=== PATIENT | male | born 1950 | race Caucasian/White ===

== ENCOUNTER 2017-07-20 12:48 | Observation (INO) | payer OTHER, MEDICARE ==
[2017-07-20 13:35] VITALS: BP 161/84; PULSE 74; RESP 16; TEMP 98.4; O2SAT 96
[2017-07-20 14:19] LABS: AUTOMATED NEUTROPHIL # 7.3 TH/MM3 (1.8-7.7); BASOPHIL # 0.1 TH/MM3 (0-0.2); BASOPHIL % 0.5 % (0.0-2.0); EOSINOPHIL # 0.1 TH/MM3 (0-0.4); EOSINOPHIL % 1.1 % (0.0-4.0); HEMATOCRIT 46.2 % (39.0-51.0); HEMOGLOBIN 15.5 GM/DL (13.0-17.0); LYMPH % 28.2 % (9.0-44.0); LYMPHOCYTE # 3.2 TH/MM3 (1.0-4.8); MEAN CORPUSCULAR HEMOGLOBIN 27.8 PG (27.0-34.0); MEAN CORPUSCULAR HGB CONC 33.5 % (32.0-36.0); MEAN PLATELET VOLUME 7.3 FL (7.0-11.0); MONO % 5.4 % (0.0-8.0); MONOCYTE # 0.6 TH/MM3 (0-0.9); NEUT % 64.8 % (16.0-70.0); PLATELET COUNT 240 TH/MM3 (150-450); RED BLOOD COUNT 5.57 MIL/MM3 (4.50-5.90); RED CELL DISTRIBUTION WIDTH 13.5 % (11.6-17.2); WHITE BLOOD COUNT 11.3 TH/MM3 (4.0-11.0)
[2017-07-20 14:31] LABS: PROTHROMBIN TIME - PATIENT 10.4 SEC (9.8-11.6)
--- NOTE | 2017-07-20 14:38 | RADRPT ---
EXAM DATE/TIME: 07/20/2017 13:55 [place] COMPARISON: No previous studies available for comparison. INDICATIONS : Chest pain. MEDICAL HISTORY : Hypertension. Diabetes mellitus type II. Asthma. SURGICAL HISTORY : None. ENCOUNTER: Initial ACUITY: 2 days PAIN SCORE: 8/10 LOCATION: Bilateral chest FINDINGS: PA and lateral views of the chest demonstrate the lungs to be symmetrically aerated without evidence of mass, infiltrate or effusion. The cardiomediastinal contours are unremarkable. Osseous structure s are intact. CONCLUSION: 1. No acute cardiopulmonary findings. Shade Ballesteros MD on July 20, 2017 at 14:35 Board Certified Radiologist. This report was verified electronically.
[2017-07-20 14:40] LABS: BICARBONATE 27.1 MEQ/L (21.0-32.0); BLOOD UREA NITROGEN 20 MG/DL (7-18); CALCIUM 8.7 MG/DL (8.5-10.1); CHLORIDE 103 MEQ/L (98-107); CREATININE 0.98 MG/DL (0.60-1.30); GLOMERULAR FILTRATION RATE 76 ML/MIN (>89); GLUCOSE,RANDOM 136 MG/DL (74-106); MAGNESIUM 1.9 MG/DL (1.5-2.5); SODIUM (NA) 138 MEQ/L (136-145)
[2017-07-20 14:45] LABS: TROPONIN I LESS THAN 0.02 NG/ML (0.02-0.05)
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
[2017-07-20 15:36] VITALS: BP 165/79; PULSE 68; RESP 20; O2SAT 96
[2017-07-20] MEDS ORDERED: FLUT50SP EACH NARE (15:50)
[2017-07-20] MEDS ORDERED: ASPI-516 CHEW (15:50)
[2017-07-20] MEDS ORDERED: SYMB160A INH (15:50)
[2017-07-20] MEDS ORDERED: AZEL137S EACH NARE (15:50)
[2017-07-20] MEDS ORDERED: ATEN25TA PO (15:50)
[2017-07-20] MEDS ORDERED: IPRAAER INH (15:50)
[2017-07-20] MEDS ORDERED: OMEP20TA93 PO (15:50)
[2017-07-20] MEDS ORDERED: GABA300C5 PO (15:50)
[2017-07-20] MEDS ORDERED: ATOR10TA15 PO (15:50)
[2017-07-20] MEDS ORDERED: CETI10 PO (15:50)
[2017-07-20] MEDS ORDERED: METF500T PO (15:50)
[2017-07-20] MEDS ORDERED: VIAG50TA PO (15:50)
[2017-07-20] MEDS ORDERED: MELO7.5T27 PO (15:50)
[2017-07-20] MEDS ORDERED: LISI-519 PO (15:50)
[2017-07-20] MEDS ORDERED: ACETAMINOPHEN 500 MG CPLT PO PRN (16:00)
[2017-07-20] MEDS ORDERED: DEXTROSE 50% IN WATER 50 ML VIAL(D50) IV PUSH PRN (16:00)
[2017-07-20] MEDS ORDERED: ONDANSETRON HCL 4 MG/2 ML VIAL IV PUSH PRN (16:00)
[2017-07-20] MEDS ORDERED: GLUCAGON 1 MG/ML VIAL OTHER PRN (16:00)
[2017-07-20] MEDS ORDERED: ALPRAZolam 0.25 MG TAB PO PRN (16:00)
[2017-07-20] MEDS ORDERED: cloNIDine HCL 0.1 MG TAB PO PRN (16:00)
[2017-07-20] MEDS ORDERED: ACETAMINOPHEN/HYDROcodone 325 MG/7.5 MG TAB PO PRN (16:00)
[2017-07-20] MEDS ORDERED: RESP: ALBUTEROL 2.5 MG/IPRATROPIUM 0.5 MG NEB (PRN) INH (16:00)
--- NOTE | 2017-07-20 16:02 | HHI.HP ---
[facility] Primary Care Physician Machelle Matthew MD Chief Complaint Chest pain History of Present Illness This is a 67-year-old male history of hypertension, hyperlipidemia, and diabetes presents to ED to be evaluated for chest discomfort at the request of the [place]. He states he was awoken around 2 in the morning with a sharp central chest discomfort that lasted 2 hours. He recalls being a little short of breath but really was not sure that is related to the URI symptoms that he has been having for the last 2 weeks. He has been having a yellowish color productive cough. Was put on Z-Christopher and prednisone by the [facility] and just finished antibiotics today. States the cough has improved but is still present. No fevers. The chest discomfort was unusual for him today. Denies nausea diaphoresis. The discomfort radiated around the left side of his chest and into the back. Found nothing really to worsen or improve the symptoms. He went to the [facility] for evaluation and was advised to come to ED via ambulance. Denies chest discomfort at this time. His last stress test was many years ago and states that it was normal. He has never had a cardiac catheterization. Review of Systems General: Patient denies fevers, chills, and recent travel HEENT: Patient denies headache, sore throat, difficulty swallowing. Cardiovascular: Has the chest discomfort as mentioned above. Denies sensation of heart beating rapidly or irregularly. No syncope. Denies diaphoresis. Respiratory: Mild shortness of breath. He has had a yellowish color productive cough that has improved after antibiotics and steroids. Denies inspirational chest discomfort. Denies wheezing or hemoptysis. GI: Patient denies nausea, vomiting, diarrhea, abdominal pain, bloody stools. Musculoskeletal: Patient denies joint pain or edema. Denies calf pain or edema. Neurovascular: Patient denies numbness, tingling, weakness in extremities. Denies headache. Endocrine: Denies polyuria and polydipsia. Hematologic: Denies easy bruising. Skin: Denies rash or itching. Past Family Social History Allergies: Coded Allergies: No Known Allergies (Unverified , 07/20/17) Past Medical History Hypertension, hyperlipidemia, and diabetes. Denies CAD. Past Surgical History Noncontributory. Reported Medications Reported Meds & Active Scripts Active Reported Dymista Nasal [place] (Azelastine-Fluticasone Nasal [place]) 137-50 Mcg [place] 1 [place] EACH NARE DAILY To each nostril. Aspirin 81 Mg Chew 81 Mg CHEW DAILY Viagra (Sildenafil Citrate) 50 Mg Tab 50 Mg PO DAILY PRN Omeprazole 20 Mg Tab 20 Mg PO DAILY Metformin (Metformin HCl) 500 Mg Tab 500 Mg PO BIDPC Meloxicam 7.5 Mg Tab 7.5 Mg PO DAILY Lisinopril 5 Mg Tab 5 Mg PO DAILY Gabapentin 300 Mg Cap 300 Mg PO TID Fluticasone Nasal [place] 50 Mcg/Act Naspr 50 Mcg EACH NARE DAILY 50 mcg/spray Cetirizine (Cetirizine HCl) 10 Mg Tab 10 Mg PO DAILY Symbicort Inh (Budesonide/Formoterol Fumarate) 160-4.5 Mcg/Act Aero 2 Puff INH HS Atorvastatin (Atorvastatin Calcium) 10 Mg Tab 10 Mg PO HS Atenolol 25 Mg Tab 25 Mg PO DAILY Combivent Respimat Inh (Ipratropium-Albuterol Inh) 20-100 Long Term/Act Aero 1 Puff INH QID Active Ordered Medications Current Medications Medications (Trade) Dose Ordered Sig/[place] Route Start Time Stop Time Status Last Admin (Tenormin) 25 mg DAILY PO 07/21/17 09:00 UNV (Lipitor) 10 mg HS PO 07/20/17 21:00 UNV (Symbicort 160-4.5 Mcg Inh) 2 puff HS INH 07/20/17 21:00 UNV (Neurontin) 300 mg TID PO 07/20/17 18:00 UNV (Prinivil) 5 mg DAILY PO 07/21/17 09:00 UNV Non-Formulary Medication 20 mg DAILY PO 07/21/17 09:00 UNV (Duoneb Neb) 1 ampule Q4HR NEB PRN INH 07/20/17 16:00 UNV (Catapres) 0.1 mg Q4H PRN PO 07/20/17 16:00 UNV (D50w (Vial) Inj) 50 ml UNSCH PRN IV PUSH 07/20/17 16:00 UNV (Glucagon Inj) 1 mg UNSCH PRN OTHER 07/20/17 16:00 UNV (NovoLOG SUPPLEMENTAL SCALE) 1 ACHS SLIDING SCALE SQ 07/20/17 17:00 UNV Family History States that his sister at age 60 of a myocardial infarction. His mother had a bypass in her 60s. Social History Lifetime non-smoker. Has occasional scotch. Denies illicit drugs. He is . Physical Exam Vital Signs Vital Signs Date Time Temp Pulse Resp B/P (MAP) Pulse Ox O2 Delivery O2 Flow Rate FiO2 07/20/17 15:36 68 20 165/79 (107) 96 Room Air 07/20/17 15:01 65 07/20/17 13:35 98.4 74 16 161/84 (109) 96 Physical Exam GENERAL: This is a well-nourished, well-developed patient, in no apparent distress. Patient speaks in clear complete sentences. Patient is pleasant. HEENT: Head is atraumatic and normocephalic. Neck is supple without lymphadenopathy and trachea is midline. No JVD or carotid bruits. CARDIOVASCULAR: Regular rate and rhythm without murmurs, gallops, or rubs. RESPIRATORY: Clear to auscultation. Breath sounds equal bilaterally. No wheezes , rales, or rhonchi. Chest wall is nontender. No use of accessory muscles. GASTROINTESTINAL: Abdomen is nontender, nondistended. Abdomen soft. No obvious pulsatile mass or bruit. No CVA tenderness. Strong femoral pulses bilaterally. Normal bowel sounds in all quadrants. MUSCULOSKELETAL: Patient is moving upper and lower extremities freely. No calf tenderness or edema, no Homans sign. Strong pulses in upper and lower extremities. NEUROLOGICAL: Patient is alert and oriented. Cranial nerves 2-12 are grossly intact. No focal deficits and speech is clear. SKIN: No rash and turgor is normal. Laboratory Laboratory Tests Test 07/20/17 14:10 White Blood Count 11.3 Red Blood Count 5.57 Hemoglobin 15.5 Hematocrit 46.2 Mean Corpuscular Volume 83.0 Mean Corpuscular Hemoglobin 27.8 Mean Corpuscular Hemoglobin Concent 33.5 Red Cell Distribution Width 13.5 Platelet Count 240 Mean Platelet Volume 7.3 Neutrophils (%) (Auto) 64.8 Lymphocytes (%) (Auto) 28.2 Monocytes (%) (Auto) 5.4 Eosinophils (%) (Auto) 1.1 Basophils (%) (Auto) 0.5 Neutrophils # (Auto) 7.3 Lymphocytes # (Auto) 3.2 Monocytes # (Auto) 0.6 Eosinophils # (Auto) 0.1 Basophils # (Auto) 0.1 CBC Comment DIFF FINAL Differential Comment Prothrombin Time 10.4 Prothromb Time International Ratio 1.0 Activated Partial Thromboplast Time 25.8 Blood Urea Nitrogen 20 Creatinine 0.98 Random Glucose 136 Calcium Level 8.7 Magnesium Level 1.9 Sodium Level 138 Potassium Level 4.2 Chloride Level 103 Carbon Dioxide Level 27.1 Anion Gap 8 Estimat Glomerular Filtration Rate 76 Total Creatine Kinase 51 Troponin I LESS THAN 0.02 Result Diagram: 07/20/17 1410 07/20/17 1410 Imaging Last 24 hours Impressions Chest X-Ray 07/20/17 1337 Signed Impressions: Service Date/Time: Thursday, July 20, 2017 13:55 - CONCLUSION: 1. No acute cardiopulmonary findings. Shade Ballesteros MD Course Initial EKG is sinus rhythm rate of [address] segment depressions or elevations. Caprini VTE Risk Assessment Caprini VTE Risk Assessment: Mod/High Risk (score >= 2) Caprini Risk Assessment Model Point Value = 1 Point Value = 2 Point Value = 3 Point Value = 5 Age 41-60 Minor surgery BMI > 25 kg/m2 Swollen legs Varicose veins or History of unexplained or recurrent spontaneous Oral contraceptives or hormone replacement Sepsis (< 1 month) Serious lung disease, including pneumonia (< 1 month) Abnormal pulmonary function Acute myocardial infarction Congestive heart failure (< 1 month) History of inflammatory bowel disease Medical patient at bed rest Age 61-74 Arthroscopic surgery Major open surgery (> 45 min) Laparoscopic surgery (> 45 min) Malignancy Confined to bed (> 72 hours) Immobilizing plaster cast Central venous access Age >= 75 History of VTE Family history of VTE Factor V Leiden Prothrombin [id number] Lupus anticoagulant Anticardiolipin antibodies Elevated serum homocysteine Heparin-induced thrombocytopenia Other congenital or acquired thrombophilia Stroke (< 1 month) Elective arthroplasty Hip, pelvis, or leg fracture Acute spinal cord injury (< 1 month) Prophylaxis Regimen Total Risk Factor Score Risk Level Prophylaxis Regimen 0-1 Low Early ambulation 2 Moderate Order ONE of the following: *Sequential Compression Device (SCD) *Heparin 5000 units SQ BID 3-4 Higher Order ONE of the following medications: *Heparin 5000 units SQ TID *Enoxaparin/Lovenox 40 mg SQ daily (WT < 150 kg, CrCl > 30 mL/min) *Enoxaparin/Lovenox 30 mg SQ daily (WT < 150 kg, CrCl > 10-29 mL/min) *Enoxaparin/Lovenox 30 mg SQ BID (WT < 150 kg, CrCl > 30 mL/min) AND/OR *Sequential Compression Device (SCD) 5 or more Highest Order ONE of the following medications: *Heparin 5000 units SQ TID (Preferred with Epidurals) *Enoxaparin/Lovenox 40 mg SQ daily (WT < 150 kg, CrCl > 30 mL/min) *Enoxaparin/Lovenox 30 mg SQ daily (WT < 150 kg, CrCl > 10-29 mL/min) *Enoxaparin/Lovenox 30 mg SQ BID (WT < 150 kg, CrCl > 30 mL/min) AND *Sequential Compression Device (SCD) Assessment and Plan Assessment and Plan * Chest pain: Patient will continue to have serial cardiac enzymes and EKGs for ruling out purposes. He will be seen by Dr. Donnie Mullen of cardiology in the chest pain center in the morning. Patient likely to have a Kushal protocol ETT if he rules out. Patient will be discharged home if the stress test is nonischemic with instructions [facility] Return to ED for interval issues. * Hypertension: Continue current medications. * Hyperlipidemia: Continue current medication. * Diabetes: Patient will be on sliding scale insulin coverage while in chest pain center. Diabetic diet. Resume medication at discharge. Patient is stable at this time. He is agreeable to this plan. Ismael Torres Jul 20, 2017 16:02
[2017-07-20] MEDS: INSULIN ASPART SUPPLEMENTAL SCALE SQ SCH ×2 (17:00→20:33)
[2017-07-20 17:02] VITALS: BP 134/66; PULSE 65; RESP 18; TEMP 97.4; O2SAT 96
[2017-07-20] MEDS: GABAPENTIN 300 MG CAP PO SCH (17:40)
[2017-07-20 17:51] LABS: TROPONIN I LESS THAN 0.02 NG/ML (0.02-0.05)
[2017-07-20 19:40] VITALS: BP 131/63; PULSE 73; RESP 16; TEMP 98; O2SAT 95
[2017-07-20 20:00] VITALS: PULSE 82
[2017-07-20] MEDS ORDERED: ATORVASTATIN 10 MG TAB PO SCH (21:00)
[2017-07-20] MEDS ORDERED: BUDESONIDE-FORMOTEROL 160/4.5 MCG INHALER INH SCH (21:00)
[2017-07-20 21:23] LABS: TROPONIN I LESS THAN 0.02 NG/ML (0.02-0.05)
[2017-07-21 00:01] VITALS: PULSE 69
[2017-07-21 00:28] VITALS: BP 168/78; PULSE 74; RESP 16; TEMP 98.3; O2SAT 94
[2017-07-21 04:01] VITALS: PULSE 72
[2017-07-21 04:15] VITALS: BP 176/94; PULSE 77; RESP 18; TEMP 98.3; O2SAT 95
[2017-07-21 05:35] VITALS: BP 138/63; PULSE 71; RESP 17; TEMP 97.6; O2SAT 95
[2017-07-21 07:41] VITALS: BP 142/81; PULSE 88; RESP 20; TEMP 97.7; O2SAT 93
[2017-07-21] MEDS: INSULIN ASPART SUPPLEMENTAL SCALE SQ SCH (08:00)
[2017-07-21] MEDS ORDERED: ASPIRIN 325 MG TAB PO SCH (09:00)
[2017-07-21] MEDS ORDERED: PANTOPRAZOLE SOD 20 MG DELAYED RELEASE TAB PO SCH (09:00)
[2017-07-21] MEDS ORDERED: ATENOLOL 25 MG TAB PO SCH (09:00)
[2017-07-21] MEDS ORDERED: LISINOPRIL 5 MG TAB PO SCH (09:00)
[2017-07-21] MEDS: GABAPENTIN 300 MG CAP PO SCH (09:52)
--- NOTE | 2017-07-21 09:52 | HHI.DS ---
Discharge Summary Admission Date Jul 20, 2017 at 15:25 Discharge Date: Jul 21, 2017 Admitting Diagnosis Atypical Chest Pain (1) Atypical chest pain Diagnosis: Principal ICD Codes: R07.89 - Other chest pain Status: Resolved Brief History 67 year old male with history of HTN, HLD, and type II diabetes presented to ER by [facility] direction [facility] due to complaint of central chest pain. Recently treated with antibiotics and sterids for upper respiratory infection. Admitted to chest pain center. ACS ruled out and completed exercise stress testing under Kushal protocol. Reviewed by Dr Donnie Mullen, discharge home with follow up with PCP. CBC/BMP: 07/20/17 1410 07/20/17 1410 Significant Findings Laboratory Tests Test 07/20/17 14:10 07/20/17 17:10 07/20/17 20:15 White Blood Count 11.3 TH/MM3 (4.0-11.0) Blood Urea Nitrogen 20 MG/DL (7-18) Random Glucose 136 MG/DL (74-106) Estimat Glomerular Filtration Rate 76 ML/MIN (>89) Troponin I LESS THAN 0.02 NG/ML LESS THAN 0.02 NG/ML LESS THAN 0.02 NG/ML Imaging Last 48 hours Impressions Chest X-Ray 07/20/17 1337 Signed Impressions: Service Date/Time: Thursday, July 20, 2017 13:55 - CONCLUSION: 1. No acute cardiopulmonary findings. Shade Ballesteros MD PE at Discharge GENERAL: Alert WN, WD, NAD, pleasant, obese, male HEAD: NC, AT CV: RRR, without murmur, rub, gallop, no JVD, S1-S2 no S3-S4 RESP: Clear lungs throughout bilateral, no crackles, wheeze, rhonchi, symmetrical chest rise, nonlabored, able to speak in full sentences ABD: Soft, NT, ND, no masses, positive bowel tones EXT: Pulses +24, no dependent edema MS: Normal tone 4 extremities, nontender, no obvious deformities, full range of motion NEURO: CN II through CN XII grossly intact, motor strength 5/5, gait WNL PSYCH: A+O 3, pleasant affect, appropriate speech, mood, insight and judgment SKIN: Normal turgor, normal texture, no lesions, no rashes, brisk cap refill, even hair distribution multiple tattoos Pt Condition on Discharge: Good Discharge Disposition: Discharge Home Discharge Instructions DIET: Follow Instructions for: As Tolerated, No Restrictions Munira Murphy Jul 21, 2017 09:52
--- NOTE | 2017-07-22 08:47 | EKG ---
Date Performed: 07/20/2017 Time Performed: 20:56:59 PTAGE: 67 years EKG: Sinus rhythm ABNORMAL ECG PREVIOUS TRACING : 07/20/2017 17.09 Since previous tracing, no significant change noted DOCTOR: Donnie Mullen Interpretating Date/Time 07/22/2017 08:46:34
--- NOTE | 2017-07-22 08:48 | EKG ---
Date Performed: 07/20/2017 Time Performed: 17:09:22 PTAGE: 67 years EKG: Sinus rhythm NORMAL ECG PREVIOUS TRACING : 07/20/2017 15.08 Since previous tracing, no significant change noted DOCTOR: Donnie Mullen Interpretating Date/Time 07/22/2017 08:47:51
--- NOTE | 2017-07-22 08:49 | EKG ---
Date Performed: 07/20/2017 Time Performed: 15:08:48 PTAGE: 67 years EKG: Sinus rhythm NORMAL ECG INTERPRETATION BASED ON A DEFAULT AGE OF 40 YEARS PREVIOUS TRACING : 07/20/2017 15.02 Since previous tracing, no significant change noted DOCTOR: Donnie Mullen Interpretating Date/Time 07/22/2017 08:48:53
--- NOTE | 2017-07-22 09:03 | TR ---
Date Performed: 07/21/2017 Time Performed: 09:26:55 DOCTOR: Donnie Mullen DRUG LIST: CLINICAL HISTORY: REASON FOR TEST: REASON FOR ENDING: OBSERVATION: CONCLUSION: Kushal protocol completed. Stopped sec to foot pain and reaching target heart rate.Azar chaneymum NB=058 Target HR Achieved=86.0% Maximum XJ=746/72 Total Exercise Time=3:59. No reprod chest dis comfort. No ectopy. No st t segments changes to suggest ischemic, nondiagnositic. Normal bp response. Fair exercise tolerance. Recovery quiick and unremarkable. COMMENTS: Patient exercised using the Kushal protocol. No electrocardiographic changes were seen to suggest ischemia. Hemodynamic response to exercise was normal. No significant arrhythmia was prese nt.
== END 2017-07-21 11:33 | disposition home or self-care (01) ==
LOC: NEPE 12:48 → NEDA 15:25 → NEPFCDU 16:24
PROVIDERS: ADMIT Internal Medicine Cardiovascular Disease; ATTEND Internal Medicine Cardiovascular Disease
DX: R07.89 Other chest pain (principal); R06.02 Shortness of breath; I10 Essential (primary) hypertension; R94.31 Abnormal electrocardiogram [ECG] [EKG]; J45.909 Unspecified asthma, uncomplicated; E78.00 Pure hypercholesterolemia, unspecified; E11.9 Type 2 diabetes mellitus without complications; E66.9 Obesity, unspecified; Z79.899 Other long term (current) drug therapy; Z79.84 Long term (current) use of oral hypoglycemic drugs; Z79.4 Long term (current) use of insulin
CPT/HCPCS: 71046; 80048; 82550; 82948; 83735; 84484; 85025; 85610; 85730; 93005; 93017; 99285; G0378